=== PATIENT | female | born 1975 | race Caucasian/White ===

== ENCOUNTER → 2017-03-24 | Outpatient (CLI) | payer BC ==
--- NOTE | 2017-03-24 12:38 | RADIOLOGY REPORT (SQ) ---
EXAM DESCRIPTION: U/S ABDOMEN COMPLETE W/O DOP COMPLETED DATE/TIME: 03/24/2017 10:53 am REASON FOR STUDY: RUQ PAIN R10.11 RIGHT UPPER QUADRANT PAIN COMPARISON: MRI abdomen 03/20/2009 Abdominal ultrasound 09/02/2015 CT abdomen pelvis 09/03/2015 TECHNIQUE: Dynamic and static grayscale images acquired of the abdomen and recorded on PACS. Additio nal selected color Doppler and spectral images recorded. LIMITATIONS: Large patient, midline bowel gas FINDINGS: PANCREAS: Not well seen LIVER: Diffusely enlarged, 25 cm in length, stable. There is increased echogenicity from fatty infil tration. No gross masses. Sparing of fatty infiltration at the gallbladder fossa. LIVER VASCULATURE: Normal directional flow of the main portal vein and hepatic veins. GALLBLADDER: No stones. Normal wall thickness. No pericholecystic fluid. ULTRASOUND-DETECTED SANTANA'S SIGN: Negative. INTRAHEPATIC DUCTS AND COMMON DUCT: CBD and intrahepatic ducts normal caliber. No filling defects. INFERIOR VENA CAVA: Not well seen AORTA: No aneurysm. RIGHT KIDNEY: Normal size. Mild cortical thinning from medical renal disease No solid or suspici ous masses. No hydronephrosis. No calcifications. LEFT KIDNEY: Normal size. Mild cortical thinning from medical renal disease No solid or suspicio us masses. No hydronephrosis. No calcifications. SPLEEN: Stable splenomegaly, 16 to 17 cm in length. PERITONEAL AND PLEURAL SPACES: No ascites or effusions. OTHER: No other significant finding. IMPRESSION: Stable hepatosplenomegaly No gallstones. No gallbladder wall thickening or pericholecystic fluid TECHNICAL DOCUMENTATION: JOB ID: [id number]- All Rights Reserved
== END ==
LOC: RAD 09:48
PROVIDERS: ATTEND Family Medicine
DX: R10.11 Right upper quadrant pain (principal); R16.2 Hepatomegaly with splenomegaly, not elsewhere classified
CPT/HCPCS: 76700

== ENCOUNTER 2018-12-07 03:46 | Emergency (ER) | payer OTHER, BC ==
--- NOTE | 2018-12-07 04:33 | ER Document Report ---
ED General - General Chief Complaint: Foot Injury Stated Complaint: POSSIBLE FOOT INJURY Time Seen by Provider: 12/07/18 03:58 Primary Care Provider: DEX PILLAI MD [ACTIVE STAFF] - Follow up in 3-5 days Notes: Patient is a 43-year-old female presents with complaint of potential injury to Achilles tendon. Patient says she was at work. She went to pivot on her foot and felt a pop against her left heel. She now has pain to the posterior aspect of her heel and into the distal Achilles tendon. She says it does hurt to walk. She continued to walk on it some throughout her shift to finish her shift and she than came to the ER. She denies any other injuries. No other complaints at this time. She denies this ever happening before. TRAVEL OUTSIDE OF THE [place] IN LAST 30 DAYS: No - Related Data Allergies/Adverse Reactions: No Known Allergies Allergy (Verified 01/28/16 06:44) Past Medical History - Social History Smoking Status: Never Smoker Frequency of alcohol use: None Drug Abuse: None Family History: Reviewed & Not Pertinent Past Surgical History: Reports: Hx Section - x2, Hx Herniorrhaphy, Hx Tubal Ligation Review of Systems - Review of Systems Notes: My Normal Review Basic REVIEW OF SYSTEMS: CONSTITUTIONAL : Denies fever, chills, or sweats. Denies recent illness. MUSCULOSKELETAL: Pain over the back of the left heel. SKIN: Denies rash or skin lesions. NEUROLOGICAL: Denies sensory or motor loss. ALL OTHER SYSTEMS REVIEWED AND NEGATIVE. Physical Exam - Vital signs Vitals: Temp Pulse Resp BP Pulse Ox 97.4 F 87 20 178/82 H 100 12/07/18 03:48 12/07/18 03:48 12/07/18 03:48 12/07/18 03:48 12/07/18 03:48 - Notes Notes: General Appearance: Well nourished, alert, cooperative, no acute distress, mild obvious discomfort. Vitals: reviewed, See vital signs table. Extremities: Patient has good distal capillary refill and no foot. Good distal pulses. She does have tenderness to palpation directly over the attachment of the Achilles tendon to the calcaneus. She has some pain to palpation into the distal Achilles tendon as well. No pain over the proximal Achilles tendon. No pain of the calf muscle. She does have pain with plantar flexion of the foot. She does not have weakness with plantar flexion. Skin: warm, dry, appropriate color, no rash Neuro: speech clear, oriented x 3, normal affect, responds appropriately to questions. Course - Re-evaluation Re-evalutation: 12/07/18 05:56 Based on patient's history and exam I suspect he probably has a partial tear of her Achilles tendon. She does not have an obvious full rupture of the Achilles tendon as I can palpate her Achilles tendon all the way from the calf muscle down to the heel and there is no deformity. Also patient still able to plantarflex her foot. We will place her in a posterior splint to help prevent any further injury to the Achilles tendon. I will have her follow-up with orthopedics. We did give her crutches. I encouraged her return to ER if she has worsening pain or feels unwell. Patient agrees with plan and will be discharged home. Dictation of this chart was performed using voice recognition software; therefore, there may be some unintended grammatical errors. - Vital Signs Vital signs: Temp Pulse Resp BP Pulse Ox 97.7 F 82 16 138/75 H 100 12/07/18 05:35 12/07/18 05:35 12/07/18 05:35 12/07/18 05:35 12/07/18 05:35 Procedures - Immobilization Left Ankle Pre-Proc Neuro Vasc Exam: Normal Immobilizer type: Short Leg Posterior Performed by: PCT Post-Proc Neuro Vasc Exam: Normal Discharge - Discharge Clinical Impression: Achilles tendon injury Qualifiers: Encounter type: initial encounter Laterality: left Qualified Code(s): S86.002A - Unspecified injury of left Achilles tendon, initial encounter Condition: Good Disposition: HOME, SELF-CARE Additional Instructions: Please use the crutches. Please do not bear weight on the left foot until cleared by orthopedic doctor. Please wear the splint. Your splint has an Miguel A wrap around it. Sometimes you can have increased swelling in your arm which will cause a splint to be too tight. Please loosen the Miguel A wrap around the splint if you start having any increasing pain or swelling or numbness into your hand. Please return to ER immediately if you continue have these symptoms despite loosening the splint. These follow-up with the orthopedic doctor this week for reevaluation. Call his office this morning to make a follow-up appointment. Forms: Special Work Note, Return to Work Referrals: DEX PILLAI MD [ACTIVE STAFF] - Follow up in 3-5 days
--- NOTE | 2018-12-07 04:43 | RADIOLOGY REPORT (SQ) ---
EXAM DESCRIPTION: XR CALCANEUS 2 VIEWS COMPLETED DATE/TME: 12/07/2018 04:05 CLINICAL HISTORY: 43 years Female, trauma COMPARISON: None. Findings: Moderate calcaneal enthesophytes. Bones, joints, and soft tissues of the LEFT XR CALCANEUS 2 VIEWS appear otherwise unremarkable. IMPRESSION: No acute findings.
[2018-12-07 05:41] VITALS: BP 138/75
== END 2018-12-07 05:35 | disposition home or self-care (01) ==
LOC: ER 03:46
PROC: 2W3RX1Z Immobilization of Left Lower Leg using Splint (ICD-10-PCS; principal; 2018-12-07)
DX: S86.002A Unspecified injury of left Achilles tendon, initial encounter (principal); M79.672 Pain in left foot; X50.1XXA Overexertion from prolonged static or awkward postures, initial encounter
CPT/HCPCS: 99283

== ENCOUNTER 2020-01-17 02:56 | Emergency (ER) | payer OTHER ==
[2020-01-17 06:45] LABS: ABSOLUTE BASOPHILS # (AUTO) 0.1 10^3/uL (0.0-0.2); ABSOLUTE EOSINOPHILS # (AUTO) 0.1 10^3/uL (0.0-0.6); ABSOLUTE MONOCYTES (AUTO) 0.3 10^3/uL (0.1-1.4); ABSOLUTE NEUT (AUTO) 7.2 10^3/uL (1.7-8.2); BASOPHILS % (AUTO) 0.6 % (0-2); EOSINOPHILS % (AUTO) 1.4 % (0-6); HEMATOCRIT 36.4 % (36.0-47.0); HEMOGLOBIN 12.8 g/dL (12.0-15.5); LYMPHOCYTES % (AUTO) 11.1 % (13-45); MEAN CORPUSCULAR HEMOGLOBIN 31.5 pg (27.0-33.4); MEAN CORPUSCULAR HGB CONC 35.1 g/dL (32.0-36.0); MEAN CORPUSCULAR VOLUME 90 fl (80-97); MONOCYTES % (AUTO) 2.9 % (3-13); PLATELET COUNT 196 10^3/uL (150-450); RED BLOOD COUNT 4.05 10^6/uL (3.72-5.28); RED CELL DISTRIBUTION WIDTH 12.7 % (11.5-14.0); TOTAL CELLS COUNTED % (AUTO) 100 %; WHITE BLOOD COUNT 8.6 10^3/uL (4.0-10.5)
--- NOTE | 2020-01-17 07:00 | ER Document Report ---
ED GI/ - General Mode of Arrival: Ambulatory Information source: Patient TRAVEL OUTSIDE OF THE [place] IN LAST 30 DAYS: No <ROSIBEL APPLE - Last Filed: 01/17/20 08:35> <ANN-MARIE CHIANG - Last Filed: 01/17/20 10:30> - General Chief Complaint: Flank Pain Stated Complaint: BACK/FLANK PAIN Time Seen by Provider: 01/17/20 06:59 Primary Care Provider: CARMEN SORENSEN MD [Primary Care Provider] - Follow up as needed Notes: Patient presents emergency department chief complaint of left flank pain. Addie ent reports yesterday around noon she started having some nausea. She reports at 2 AM she had sudden onset left flank pain that has now wraps around to the abdomen. She denies any fever, chills, dysuria. She states she was feeling well prior to the onset of this. She denies any history of kidney stones. She has a history of hyperlipidemia, hypertension and borderline diabetes. (ROSIBEL APPLE) - Related Data Allergies/Adverse Reactions: No Known Allergies Allergy (Verified 01/28/16 06:44) Past Medical History - General Information source: Patient - Social History Smoking Status: Never Smoker Chew tobacco use (# tins/day): No Frequency of alcohol use: None Drug Abuse: None Family History: Reviewed & Not Pertinent Patient has homicidal ideation: No - Past Medical History Cardiac Medical History: Reports: Hx Hypercholesterolemia, Hx Hypertension Endocrine Medical History: Reports: Hx Diabetes Mellitus Type 2 - "BORDERLINE" Renal/ Medical History: Denies: Hx Peritoneal Dialysis Past Surgical History: Reports: Hx Section - x2, Hx Herniorrhaphy, Hx Tubal Ligation - Immunizations Immunizations up to date: Yes <ROSBIEL APPLE - Last Filed: 01/17/20 08:35> Review of Systems - Review of Systems Constitutional: No symptoms reported EENT: No symptoms reported Cardiovascular: No symptoms reported Respiratory: No symptoms reported Gastrointestinal: Abdominal pain, Nausea, Vomiting Genitourinary: Flank pain Female Genitourinary: No symptoms reported Musculoskeletal: No symptoms reported Skin: No symptoms reported Hematologic/Lymphatic: No symptoms reported Neurological/Psychological: No symptoms reported <ROSIBEL APPLE - Last Filed: 01/17/20 08:35> Physical Exam <ROSIBEL APPLE - Last Filed: 01/17/20 08:35> - Vital signs Vitals: Temp Pulse Resp BP Pulse Ox 98.8 F 74 18 153/91 H 95 01/17/20 03:18 01/17/20 03:18 01/17/20 03:18 01/17/20 03:18 01/17/20 03:18 - Notes Notes: PHYSICAL EXAMINATION: GENERAL: Well-appearing, well-nourished and in no acute distress. HEAD: Atraumatic, normocephalic. EYES: Pupils equal round and reactive to light, extraocular movements intact, conjunctiva are normal. ENT: Nares patent, oropharynx clear without exudates. Moist mucous membranes. NECK: Normal range of motion, supple without lymphadenopathy LUNGS: Breath sounds clear to auscultation bilaterally and equal. No wheezes rales or rhonchi. HEART: Regular rate and rhythm without murmurs ABDOMEN: Soft, nondistended abdomen. Tenderness to palpation in the left upper quadrant. No guarding, no rebound. No masses appreciated. Female : deferred Musculoskeletal: Tenderness to palpation to the left lumbar paraspinous region, tenderness in the left upper quadrant of the abdomen NEUROLOGICAL: Cranial nerves grossly intact. Normal speech, normal gait. Normal sensory, motor exams PSYCH: Normal mood, normal affect. SKIN: Warm, Dry, normal turgor, no rashes or lesions noted. (ROSIBEL APPLE) Course - Laboratory Result Diagrams: 01/17/20 06:26 01/17/20 06:26 <ROSIBEL APPLE - Last Filed: 01/17/20 08:35> - Laboratory Result Diagrams: 01/17/20 06:26 01/17/20 06:26 - Diagnostic Test Radiology reviewed: Reports reviewed <ANN-MARIE CHIANG - Last Filed: 01/17/20 10:30> - Re-evaluation Re-evalutation: 01/17/20 07:37 CBC and CMP are unremarkable. Urine does not appear to be infected. Patient will be sent for CT abdomen pelvis without contrast to evaluate for renal stone. 01/17/20 08:36 Handoff given to Mellisa Chiang NP. (ROSIBEL APPLE) 01/17/20 10:27 Patient reports pain is improved at this time and nausea is resolved. Patient presents with abdominal pain without signs of peritonitis or other life- threatening or serious etiology. Patient appears stable for discharge and has been instructed to return immediately if the symptoms worsen in any way. (ANN-MARIE CHIANG) - Vital Signs Vital signs: Temp Pulse Resp BP Pulse Ox 98.8 F 74 18 153/91 H 95 01/17/20 03:18 01/17/20 03:18 01/17/20 03:18 01/17/20 03:18 01/17/20 03:18 - Laboratory Laboratory results interpreted by me: 01/17/20 01/17/20 06:26 06:26 Lymph % (Auto) 11.1 L Clark % (Auto) 2.9 L Seg Neutrophils % 84.0 H Sodium 136.6 L Glucose 159 H 01/17/20 10:28 Labs- All tests 24 hr 01/17/20 01/17/20 01/17/20 06:26 06:26 07:05 WBC 8.6 RBC 4.05 Hgb 12.8 Hct 36.4 MCV 90 MCH 31.5 MCHC 35.1 RDW 12.7 Plt Count 196 Lymph % (Auto) 11.1 L Clark % (Auto) 2.9 L Eos % (Auto) 1.4 Baso % (Auto) 0.6 Absolute Neuts (auto) 7.2 Absolute Lymphs (auto) 1.0 Absolute Monos (auto) 0.3 Absolute Eos (auto) 0.1 Absolute Basos (auto) 0.1 Seg Neutrophils % 84.0 H Sodium 136.6 L Potassium 4.5 Chloride 105 Carbon Dioxide 25 Anion Gap 7 BUN 15 Creatinine 0.73 Est GFR ( Amer) > 60 Est GFR (MDRD) Non-Af > 60 Glucose 159 H Calcium 9.0 Total Bilirubin 0.4 Direct Bilirubin 0.0 Neonat Total Bilirubin Not Reportable Neonat Direct Bilirubin Not Reportable Neonat Indirect Bili Not Reportable AST 18 ALT 17 Alkaline Phosphatase 80 Total Protein 7.3 Albumin 4.2 Lipase 150.4 Urine Color YELLOW Urine Appearance CLEAR Urine pH 5.0 Ur Specific [place] 1.024 Urine Protein NEGATIVE Urine Glucose (UA) NEGATIVE Urine Ketones NEGATIVE Urine Blood NEGATIVE Urine Nitrite NEGATIVE Urine Bilirubin NEGATIVE Urine Urobilinogen NEGATIVE Ur Leukocyte Esterase NEGATIVE Urine WBC (Auto) 2 Urine RBC (Auto) 0 Urine Bacteria (Auto) TRACE Squamous Epi Cells Auto 1 Urine Mucus (Auto) RARE Urine Ascorbic Acid NEGATIVE (ANN-MARIE CHIANG) Discharge <ROSIBEL APPLE - Last Filed: 01/17/20 08:35> <ANN-MARIE CHIANG - Last Filed: 01/17/20 10:30> - Discharge Clinical Impression: Flank pain, Nausea Diarrhea Qualifiers: Diarrhea type: unspecified type Qualified Code(s): R19.7 - Diarrhea, unspec ified Abdominal pain Qualifiers: Abdominal location: unspecified location Qualified Code(s): R10.9 - Unspecified abdominal pain Condition: Stable Disposition: HOME, SELF-CARE Instructions: Flank Pain ([facility]) Additional Instructions: Return immediately for any new or worsening symptoms Followup with your primary care provider, call tomorrow to make a followup appointment ABDOMINAL PAIN: There are many causes of abdominal pain. Pain can mean a serious problem requiring surgery (such as appendicitis). It can also be an innocent problem that goes away on its own (such as a viral infection). Often, time must pass to determine the cause of pain. The physician does not feel that hospitalization is necessary, at present. Things may change within the next 24 hours. Call the doctor or come back for re- examination if any problems occur, such as: (1) Pain that becomes more severe, steady, or becomes concentrated in one specific area. Also, pain that is more severe with movement or coughing. (2) Vomiting that persists or becomes more frequent. (3) Blood in the vomitus, urine, or bowel movements. Blood in the stool may have a tarry or black appearance. (4) Shaking chills or fever greater than 100 degrees F. (5) The abdomen becomes more distended or swollen. (6) Bowel movements cease. (7) Failure to improve as expected. TORADOL INJECTION: You have been given an injection of ketorolac tromethamine (Toradol). This is an excellent, safe drug for pain control. It also has potent antiinflammatory action. You should have significant pain relief within about one hour. Toradol is not addicting and is non-sedating. It does not interfere with driving or work. Call or return if you develop itching, hives, shortness of breath, or rash. ANTINAUSEA MEDICATION: You have been given a medication to suppress nausea and vomiting. This type of medication can be given as a shot, pill, or suppository. It will usually last for many hours. Pills and shots usually last six to eight hours, suppositories last about 12 hours. For the typical illness, only one or two doses of the medication may be necessary. Mild lightheadedness may occur. This type of medicine can cause drowsiness. Do not drive or operate dangerous machinery while under its influence. Do not mix with alcohol. See your doctor at once if you have muscle spasms or tightness, or uncontrollable motions (particularly of the neck, mouth, or jaw). Persistent vomiting or severe lightheadedness should also be evaluated by the physician. ANTISPASMODICS: You have been given a prescription for an antispasmodic medicine. This type of drug is used to decrease cramping and pain in the intestines. It is also used to decrease secretion of internal fluids (such as stomach acid in ulcer disease or pancreatic juice in pancreas disease). This medicine may cause drowsiness, especially with the first dose. Do not operate machinery or drive until all side effects have resolved. Do not combine with alcohol. Other common side effects include dry mouth and eyes. In older persons, antispasmodics can occasionally cause urinary retention, constipation, or trouble focusing the eyes. Glaucoma may be worsened by this medicine. FOLLOW-UP CARE: If you have been referred to a physician for follow-up care, call the physicians office for an appointment as you were instructed or within the next two days. If you experience worsening or a significant change in your symptoms, notify the physician immediately or return to the Emergency Department at any time for re-evaluation. FOLLOW-UP CARE: You should return for re-evaluation in 12 hours. This follow-up visit is important. If you are unable to return, or feel that the return visit is unnecessary, please call us. Prescriptions: Dicyclomine HCl [Bentyl 20 mg Tablet] 20 mg PO QID PRN #12 tablet PRN Reason: Naproxen [Naprosyn 250 Nmg Tablet] 1 tab PO BID #14 tablet Ondansetron [Zofran Odt 4 mg Tablet] 1 tab PO Q6H #15 tab.rapdis Referrals: CARMEN SORENSEN MD [Primary Care Provider] - Follow up as needed
[2020-01-17 07:07] LABS: ALBUMIN 4.2 g/dL (3.5-5.0); ALKALINE PHOSPHATASE 80 U/L (38-126); ANION GAP 7 (5-19); ASPARTATE AMINO TRANSFERASE 18 U/L (14-36); BILIRUBIN,TOTAL 0.4 mg/dL (0.2-1.3); BLOOD UREA NITROGEN 15 mg/dL (7-20); CARBON DIOXIDE 25 mmol/L (22-30); CHLORIDE 105 mmol/L (98-107); GLUCOSE 159 mg/dL (75-110); POTASSIUM 4.5 mmol/L (3.6-5.0); TOTAL PROTEIN 7.3 g/dL (6.3-8.2)
[2020-01-17 07:23] LABS: APPEARANCE,URINE CLEAR; BILIRUBIN,URINE NEGATIVE (NEGATIVE); COLOR,URINE YELLOW; GLUCOSE, URINE NEGATIVE (NEGATIVE); KETONES,URINE NEGATIVE (NEGATIVE); LEUKOCYTE ESTERASE,URINE NEGATIVE (NEGATIVE); NITRITE,URINE NEGATIVE (NEGATIVE); PROTEIN,URINE NEGATIVE (NEGATIVE); URINE SPECIFIC GRAVITY 1.024; UROBILINOGEN,URINE NEGATIVE mg/dL (<2.0)
[2020-01-17] MEDS ORDERED: KETOROLAC TROMETHAMINE INJ/PF 30 MG/1 ML SDV IV ONE (07:37)
[2020-01-17] MEDS ORDERED: ONDANSETRON HCL INJ/PF 4 MG/2 ML SDV IV ONE (07:38)
[2020-01-17] MEDS ORDERED: NORMAL SALINE 1000 ML 1,000 ML IV ONE (07:38)
[2020-01-17] MEDS ORDERED: NORMAL SALINE 250 ML IV PRN ×2 (07:40)
--- NOTE | 2020-01-17 08:14 | RADIOLOGY REPORT (SQ) ---
EXAM DESCRIPTION: CT ABD/PELVIS NO ORAL OR IV IMAGES COMPLETED DATE/TIME: 01/17/2020 7:48 am REASON FOR STUDY: L FLANK PAIN COMPARISON: 09/03/2015 TECHNIQUE: CT scan of the abdomen and pelvis performed without intravenous or oral contrast. Images reviewed with lung, soft tissue, and bone windows. Reconstructed coronal and sagittal MPR images revi ewed. All images stored on PACS. All CT scanners at this facility use dose modulation, iterative reconstruction, and/or weight based d osing when appropriate to reduce radiation dose to as low as reasonably achievable (ALARA). [facility]: Dose Right [facility]: CareDose [facility]: Dose Right [facility]: Teradose 4D [facility]: Smart Opternative RADIATION DOSE: CT Rad equipment meets quality standard of care and radiation dose reduction techniq ues were employed. CTDIvol: 19.0 mGy. DLP: 1133 mGy-cm.mGy. LIMITATIONS: None. FINDINGS: LOWER CHEST: No significant findings. No nodules or infiltrates. NON-CONTRASTED LIVER, SPLEEN, ADRENALS: Liver and spleen are stable in appearance. No focal lesions. There is a small right adrenal adenoma unchanged. PANCREAS: No masses. No peripancreatic inflammatory changes. GALLBLADDER: No identified stones by CT criteria. No inflammatory changes to suggest cholecystitis. RIGHT KIDNEY AND URETER: No suspicious masses. Assessment limited by lack of IV contrast. No signif icant calcifications. No hydronephrosis or hydroureter. LEFT KIDNEY AND URETER: No suspicious masses. Assessment limited by lack of IV contrast. No signifi cant calcifications. No hydronephrosis or hydroureter. AORTA AND RETROPERITONEUM: No aneurysm. No retroperitoneal masses or adenopathy. BOWEL AND PERITONEAL CAVITY: No obvious masses or inflammatory changes. No free fluid. APPENDIX: Normal. PELVIS, BLADDER, AND ABDOMINAL WALL:Fibroid uterus. No free fluid. Prior anterior abdominal wall he rnia repair. BONES: No significant findings. OTHER: No other significant finding. IMPRESSION: Fibroid uterus. No other significant findings in the abdomen or pelvis. COMMENT: Quality ID # [id number]: Final reports with documentation of one or more dose reduction techniques (e.g., Automated exposure control, adjustment of the mA and/or kV according to patient size, use of iterative reconstruction technique) TECHNICAL DOCUMENTATION: JOB ID: [id number] [employer]- All Rights Reserved Reading location - IP/workstation name: [email or web address]
[2020-01-17] MEDS ORDERED: DICYCLOMINE HCL 20 MG TABLET PO ONE (08:59)
[2020-01-17 10:45] VITALS: BP 141/71
== END 2020-01-17 10:46 | disposition home or self-care (01) ==
LOC: ER 02:56
DX: D25.9 Leiomyoma of uterus, unspecified (principal); R10.9 Unspecified abdominal pain; R10.812 Left upper quadrant abdominal tenderness; R11.2 Nausea with vomiting, unspecified; R19.7 Diarrhea, unspecified; I10 Essential (primary) hypertension; Z98.51 Tubal ligation status
CPT/HCPCS: 99284; 96361; 96374; 96375; 36415; 87086; 83690; 85025; 87088; 80053; 81001; 74176; J3490; J1885; J2405; J7030; 87186